=== PATIENT | male | born 1980 | race Caucasian/White ===

== ENCOUNTER 2020-08-25 14:50 | Day surgery (SDCO) | payer OTHER ==
[2020-08-25 16:54] LABS: BILIRUBIN NEGATIVE (NEGATIVE); BLOOD 2+ Ery/uL (NEGATIVE); CLARITY CLEAR (CLEAR); COLOR YELLOW (YELLOW); GLUCOSE (U) NORMAL (NORMAL); LEUKOCYTES NEGATIVE Leu/uL (NEGATIVE); NITRITE NEGATIVE (NEGATIVE); PROTEIN NEGATIVE (NEGATIVE)
[2020-08-25 16:55] LABS: BACTERIA TRACE
[2020-08-25 17:45] LABS: HCT 45.3 % (42.0-52.0); HGB 15.9 g/dl (13.2-18.0); MCH 31.1 pg (25.0-31.0); MCHC 35.1 g/dL (32.0-36.0); MCV 88.6 fL (78.0-100.0); MPV 9.5 fL (6.0-9.5); RBC 5.11 M/uL (4.70-6.00); WBC 8.9 K/uL (4.0-10.5)
[2020-08-25 17:46] LABS: ALBUMIN 3.8 g/dL (3.4-5.0); BILIRUBIN - TOTAL 0.8 mg/dL (0.2-1.0); BUN/CREAT RATIO (CALC) 17.7 RATIO; CREATININE 0.62 mg/dL (0.67-1.17); GLOBULIN (CALCULATION) 3.5 g/dL; POTASSIUM 3.6 mmol/L (3.5-5.1); TOTAL PROTEIN 7.3 g/dL (6.4-8.2)
[2020-08-25] MEDS ORDERED: ENEMEEZ283 MG/5 M PR (19:05)
[2020-08-25] MEDS ORDERED: PRINIVIL20 MG PO (19:05)
[2020-08-25] MEDS ORDERED: MYRBETRIQ50 MG PO (19:06)
[2020-08-25] MEDS ORDERED: DRISDOL50000 UNIT PO (19:07)
[2020-08-25] MEDS ORDERED: REVATIO 20MG TA20 MG PO (19:09)
[2020-08-25] MEDS ORDERED: SYNTHROID88 MCG PO (19:09)
== END 2020-08-26 14:00 | disposition home or self-care (01) ==
LOC: FMS 14:50
PROVIDERS: ADMIT Surgery
DX: K64.1 Second degree hemorrhoids (principal); G82.20 Paraplegia, unspecified; I10 Essential (primary) hypertension; E03.9 Hypothyroidism, unspecified; Z20.822 Contact with and (suspected) exposure to COVID-19; Z88.1 Allergy status to other antibiotic agents; Z79.899 Other long term (current) drug therapy; Z90.49 Acquired absence of other specified parts of digestive tract; Z82.49 Family history of ischemic heart disease and other diseases of the circulatory system; Z83.3 Family history of diabetes mellitus; Z83.79 Family history of other diseases of the digestive system
CPT/HCPCS: 36415; 80053; 81001; G0378; J2704; J7120; U0002